=== PATIENT | male | born 1960 ===

== ENCOUNTER → 2018-09-18 | Outpatient (REF) ==
--- NOTE | 2018-09-18 14:27 | REP ---
Clinical: Pain and disability. Technique: Internal rotation, external rotation, and Y view of the left shoulder. Findings: Mild degenerative changes include cortical irregularity at the acromioclavicular joint with inferior spur at the distal acromion process. There is subtle heterogeneity and blunting of the glenoid rim with small subchondral cystic changes suggested. The humeral head appears intact and the subacromial space measures to approximately 9.6 mm. No periarticular calcifications or loose bodies noted. Impression: Mild arthritic degenerative changes. Electronically Signed by Henry Guzman MD 09/18/2018 02:19 P
--- NOTE | 2018-09-18 14:47 | REP ---
Clinical: Pain and disability. Technique: AP, lateral, coned-down views of the lumbosacral spine. Findings: Alignment and lordosis maintained. No acute fracture / compression injury or subluxation. Moderate multilevel degenerative changes include endplate sclerosis, early marginal spurring, hypertrophic facet changes, and minimal disc space narrowing. Findings most pronounced at L3-4 through L5-S1. Impression: Moderate multilevel degenerative spondylosis. Electronically Signed by Henry Guzman MD 09/18/2018 02:38 P
== END ==
LOC: M SMT 13:54
PROVIDERS: ATTEND Internal Medicine
DX: M47.896 Other spondylosis, lumbar region (principal); M47.897 Other spondylosis, lumbosacral region; M19.112 Post-traumatic osteoarthritis, left shoulder